=== PATIENT | female | born 1980 | race Caucasian/White ===

== ENCOUNTER 2022-08-25 16:31 | Inpatient (IN) ==
[2022-08-25] MEDS ORDERED: 0.9 % SODIUM CHLORIDE 1,000 ML IV ONE ×2 (18:48→21:23)
[2022-08-25 19:05] LABS: POC Calcium, Ionized 1.1 (1.16-1.32); POC Creatinine 5.4 (0.6-1.2)
[2022-08-25] MEDS ORDERED: POTASSIUM CHLORIDE 40 MEQ in DEXTROSE 5% IN WATER 500 ML IV ONE (19:12)
[2022-08-25 19:22] LABS: Basophils # (Auto) 0.04 K/mcL (0.00-0.30); Basophils % (Auto) 0.4 % (0.0-2.0); Eosinophils # (Auto) 0.09 K/mcL (0.00-0.70); Eosinophils % (Auto) 0.9 % (0.0-7.0); Hematocrit 38.7 % (34.1-44.9); Hemoglobin 13.3 g/dL (11.2-15.7); Lymphocytes # (Auto) 2.62 K/mcL (1.50-4.80); Lymphocytes % (Auto) 25.7 % (15.5-49.0); Mean Corpuscular HGB Conc 34.4 g/dL (31.0-36.0); Mean Platelet Volume 9.1 fL (8.8-12.5); Monocytes # (Auto) 0.62 K/mcL (0.10-0.90); Monocytes % (Auto) 6.1 % (1.0-12.0); Neutrophils % (Auto) 66.7 % (38.0-78.0); Platelet Count 330 K/mcL (140-440); Red Cell Distribution Width 11.9 % (11.5-14.5); WBC 10.2 K/mcL (4.5-11.0)
[2022-08-25] MEDS ORDERED: POTASSIUM CHLORIDE 20 MEQ/10 ML VIAL IV ONE (19:35)
[2022-08-25 19:38] LABS: POC Calcium, Ionized 1.13 (1.16-1.32); POC Creatinine 5.4 (0.6-1.2); POC Potassium 2.9 (3.3-5.1)
[2022-08-25] MEDS ORDERED: POTASSIUM CHLORIDE 20 MEQ TABLET PO ONE (21:04)
[2022-08-25] MEDS ORDERED: FUROSEMIDE 40 MG/4 ML VIAL IV ONE (21:04)
[2022-08-25 21:27] LABS: POC Calcium, Ionized 1.03 (1.16-1.32); POC Creatinine 5.2 (0.6-1.2); POC Potassium 3.2 (3.3-5.1)
--- NOTE | 2022-08-25 21:35 | Emergency Department Note ---
Recheck HPI General Chief Complaint: Recheck/Abnormal Lab/Rx Stated Complaint: dr. liriano fluids low electrolites Time Seen by Provider: 08/25/22 18:48 Source: patient Mode of arrival: ambulatory Limitations: no limitations History of Present Illness HPI Narrative: Narrative: Patient presents to the ED after being sent over from her primary care physician due to abnormal labs. Apparently patient had low potassium and abnormal renal function. Patient stated that she has been having back pain which she describes as chronic. Also been having some belly issues over the last couple weeks. She denies nausea, vomiting, fever, chills, dysuria, hematuria, urinary frequency, abdominal trauma, history of chronic kidney disease, decreased urine output. Patient states she is not sure what her lab values were just that she was supposed to come here for evaluation. She denies any other alleviating or aggravating factors. Related Data Home Medications Medication Instructions Recorded Confirmed fexofenadine 180 mg tablet 180 mg PO QDAY 07/07/22 08/25/22 (Kenia Allergy) fluticasone propionate 50 1 spray intranasal QDAY 07/07/22 08/25/22 mcg/actuation nasal spray,suspension (Flonase Allergy Relief) losartan 50 mg tablet 100 mg PO QDAY 08/03/22 08/25/22 Previous Rx's Medication Instructions Recorded omeprazole 40 mg capsule,delayed 40 mg PO QDAY 30 days #30 caps 08/03/22 release potassium chloride 20 mEq 20 meq PO QDAY #7 tabs 08/05/22 tablet,extended release diltiazem HCl 120 mg 120 mg PO QAM #30 caps 08/10/22 capsule,extended release 24 hr hydrochlorothiazide 25 mg tablet 25 mg PO QAM #30 tabs 08/10/22 ondansetron HCl 8 mg tablet 8 mg PO Q12H PRN nausea and 08/10/22 vomiting #30 tabs methocarbamol 750 mg tablet 750 mg PO TID PRN muscle spasm #30 08/11/22 tabs Allergies Allergy/AdvReac Type Severity Reaction Status Date / Time feathers Allergy Unknown Unknown Verified 08/25/22 16:38 mold Allergy Unknown Unknown Verified 08/25/22 16:38 Penicillins Allergy Unknown Unknown Verified 08/25/22 16:38 Dust mites Allergy Unknown Unknown Uncoded 08/25/22 09:04 Raw shellfish Allergy Unknown Unknown Uncoded 08/25/22 09:04 Review of Systems ROS ROS Narrative: Narrative: All systems ED: reviewed and negative except as stated. 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 Hansen 07/08/2022 she has no longer seeing Dr. Hansen. 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 neg for [id number] hereditary hemochromatosis. Carrier per hematology patient should have yearly ferritin levels drawn and if elevated consult with hematology at that time 07/08/2022 check cbc and ferritin today 08/10/2022 has an appointment with hematology tomorrow, urged her to keep Hypertension Took medication in 2018 07/08/2022 new. Seen at [facility] ER in May and started on hydrochlorothiazide 12.5, blood pressure significantly elevated still, add losartan 50 mg for a week and then increase to 100, labs today, EKG shows normal sinus rhythm no ectopy or ST changes, obtain echo, stress test, follow-up a month 08/03/2022 blood pressure improved on losartan 50 and hydrochlorothiazide 25, obtain stress test, echo 08/10/2022 elevated on losartan 100 and hydrochlorothiazide 25, add diltiazem, discussed use, rationale and side effects. Follow-up on the for wellness Muscle spasm (10/01/14) Took cyclobenzaprine for muscle spasms in 201507/08/2022 new. Trial of methocarbamol Neck pain Seen by Dr. Zuñiga in 201707/08/2022 new. Obtain x-ray, start physical therapy, refer to Ortho 08/03/2022 she has an appoint with Dr. Zuñiga in 6 weeks 08/10/2022 keep appointment with Yogesh Sweating abnormality 2018 due to the number of medications she is taking that can contribute to sweating we will taper off medication rather than a complete workup due to cost, as patient does not have insurance at this time. If sweating persists will proceed with TB test, echo, blood culture, HIV etc. in 2018 sweating was thought to be related to Zoloft or Effexor, she is no longer having this and continues to sweat Tension headache (10/01/14) Took amitriptyline in 201507/08/2022 continues to struggle, start physical therapy Thoracic spine pain (10/01/14) Ureteral calculus left 5 mm stone Surgical History No history of previous surgery Family History Unknown Hemochromatosis Grandmother Benign neoplasm of brain Maternal Malignant neoplasm of colon Maternal Diabetes mellitus Maternal Dementia Brother Diabetes mellitus Calculus of kidney High blood pressure Father Cardiac disease Grandfather Malignant neoplasm of prostate Paternal Mother Dementia Social History Smoking Status: Former smoker Alcohol Intake Frequency: does not drink Substance Use: does not use Exam Narrative Narrative: Narrative: General Limitations: no limitations General appearance: Absent in distress ENT ENT: Present normal oropharynx and mucous membranes moist Respiratory Respiratory: Present normal lung sounds bilaterally and respiratory distress Cardiovascular Cardiovascular: Present regular rate and normal rhythm Adbominal Abdominal: Present soft; Absent tenderness Extremities Extremities: Present normal capillary refill Back Back: Absent CVA tenderness (R) or CVA tenderness (L) Neurological Neurological: Present oriented X3 and normal gait Psychiatric Psychiatric: Present normal affect and normal mood Skin Skin: Present warm (WNL) and intact Course Course Course Narrative: Patient was evaluated for abnormal lab findings. Labs were obtained here and showed that patient had acute kidney injury with elevated BUN and creatinine with a creatinine greater than 5. He was also found to be hypokalemic with a potassium of 2.9. UA was unremarkable. Patient was bolused IV fluids and given IV Lasix. Patient with nausea/was also given some IV Zofran. Patient began to have good urine output. Renal ultrasound was obtained and was unremarkable. Case was discussed with farm implement mechanic who stated patient did not need emergent dialysis but should be admitted to the hospital for fluid hydration. Unfortunate we do not have any beds at our facility so we attempted to transfer patient out to another facility. At this time we have not found an accepting facility. We will continue with IV fluids. Case will be signed out to Dr. Cervantes to determine final disposition once an accepting facility has been found. Plan of care was discussed with patient she expressed verbal understanding and agreement with Reevaluation(s) Reevaluation #1: Patient remains hemodynamic stable. No new complaints at this time. Time: 20:08 Consultations Consultation #1: Discussed with on-call farm implement mechanic, Dr. Solomon, who states that patient does not meet emergent dialysis requirement at this time. Recommend continued fluids and admission to hospital. Time: 22:13 Vital Signs Vital signs: Vital Signs Temperature 98.2 F 08/25/22 16:34 Pulse Rate 79 08/25/22 16:34 Respiratory Rate 18 08/25/22 16:34 Blood Pressure 149/83 08/25/22 16:34 Pulse Oximetry (%) 98 08/25/22 16:34 Oxygen Delivery Method 08/25/22 16:34 Temperature 98.2 F 08/25/22 16:34 Pulse Rate 56 L 08/26/22 05:42 Respiratory Rate 16 08/26/22 06:17 Blood Pressure 137/85 08/26/22 06:17 Pulse Oximetry (%) 100 08/26/22 05:42 Oxygen Delivery Method 08/26/22 05:42 MDM MDM Narrative Medical decision making narrative: Narrative: Differential Diagnosis Differential Diagnosis: Acute renal failure Medical Records Medical records reviewed: Yes I reviewed the patient's medical records. Lab Data Lab results reviewed: Yes I reviewed the patient's lab results. Result diagrams: 08/25/22 18:56 08/26/22 04:24 Labs: Lab Results 08/25/22 08/25/22 08/25/22 Range/Units 18:56 19:00 19:32 WBC 10.2 (4.5-11.0) K/mcL RBC 4.40 (3.59-5.38) M/mcL Hgb 13.3 (11.2-15.7) g/dL Hct 38.7 (34.1-44.9) % POC Hct 41.0 44.0 (36-48) MCV 88.0 (80.0-100.0) fL MCH 30.2 (26.0-34.0) pg MCHC 34.4 (31.0-36.0) g/dL RDW 11.9 (11.5-14.5) % Plt Count 330 (140-440) K/mcL MPV 9.1 (8.8-12.5) fL Immature Gran % (Auto) 0.2 (0.0-0.5) % Neut % (Auto) 66.7 (38.0-78.0) % Lymph % (Auto) 25.7 (15.5-49.0) % [place] % (Auto) 6.1 (1.0-12.0) % Eos % (Auto) 0.9 (0.0-7.0) % Baso % (Auto) 0.4 (0.0-2.0) % Lymph # (Auto) 2.62 (1.50-4.80) K/mcL [place] # (Auto) 0.62 (0.10-0.90) K/mcL Eos # (Auto) 0.09 (0.00-0.70) K/mcL Baso # (Auto) 0.04 (0.00-0.30) K/mcL Immature Gran # 0.02 (0.00-0.05) K/mcl Absolute Neutrophils 6.82 (1.80-8.00) K/mcL POC Sodium 138 138 (133-145) Sodium (133-145) mmol/L POC Potassium 3.0 L 2.9 L* (3.3-5.1) Potassium (3.3-5.1) mmol/L POC Chloride 99 98 (96-108) Chloride (96-108) mmol/L Carbon Dioxide (22-30) mmol/L POC Total CO2 29.0 29.0 (22-30) Anion Gap (8.0-16.0) POC BUN 37 H 38 H (6-20) BUN (6-20) mg/dL Creatinine (0.6-1.1) mg/dL POC Creatinine 5.4 H* 5.4 H* (0.6-1.2) GFR Calculation Glucose (70-105) mg/dL POC Glucose 103 102 (70-105) Calcium (8.6-10.4) mg/dL POC WB Ioniz Calcium 1.10 L 1.13 L (1.16-1.32) Magnesium (1.6-2.5) mg/dL Total Bilirubin (0.1-1.0) mg/dL AST (<32) U/L ALT (<40) U/L Alkaline Phosphatase (39-117) U/L Total Protein (5.9-8.4) gm/dL Albumin (3.2-5.2) gm/dL Globulin (2.2-3.7) gm/dL Albumin/Globulin Ratio (1.0-2.3) 08/25/22 08/25/22 08/26/22 Range/Units 21:21 21:24 04:24 WBC (4.5-11.0) K/mcL RBC (3.59-5.38) M/mcL Hgb (11.2-15.7) g/dL Hct (34.1-44.9) % POC Hct 37.0 (36-48) MCV (80.0-100.0) fL MCH (26.0-34.0) pg MCHC (31.0-36.0) g/dL RDW (11.5-14.5) % Plt Count (140-440) K/mcL MPV (8.8-12.5) fL Immature Gran % (Auto) (0.0-0.5) % Neut % (Auto) (38.0-78.0) % Lymph % (Auto) (15.5-49.0) % [place] % (Auto) (1.0-12.0) % Eos % (Auto) (0.0-7.0) % Baso % (Auto) (0.0-2.0) % Lymph # (Auto) (1.50-4.80) K/mcL [place] # (Auto) (0.10-0.90) K/mcL Eos # (Auto) (0.00-0.70) K/mcL Baso # (Auto) (0.00-0.30) K/mcL Immature Gran # (0.00-0.05) K/mcl Absolute Neutrophils (1.80-8.00) K/mcL POC Sodium 138 (133-145) Sodium 134 (133-145) mmol/L POC Potassium 3.2 L (3.3-5.1) Potassium 3.5 (3.3-5.1) mmol/L POC Chloride 101 (96-108) Chloride 99 (96-108) mmol/L Carbon Dioxide 24 (22-30) mmol/L POC Total CO2 27.0 (22-30) Anion Gap 11.0 (8.0-16.0) POC BUN 35 H (6-20) BUN 28 H (6-20) mg/dL Creatinine 4.1 H (0.6-1.1) mg/dL POC Creatinine 5.2 H* (0.6-1.2) GFR Calculation 13 Glucose 125 H (70-105) mg/dL POC Glucose 119 H (70-105) Calcium 8.5 L (8.6-10.4) mg/dL POC WB Ioniz Calcium 1.03 L (1.16-1.32) Magnesium 2.8 H (1.6-2.5) mg/dL Total Bilirubin 0.4 (0.1-1.0) mg/dL AST 17 (<32) U/L ALT 38 (<40) U/L Alkaline Phosphatase 86 (39-117) U/L Total Protein 7.0 (5.9-8.4) gm/dL Albumin 3.9 (3.2-5.2) gm/dL Globulin 3.1 (2.2-3.7) gm/dL Albumin/Globulin Ratio 1.3 (1.0-2.3) ED POC Tests ED POC Tests: DEMOND - SARS Antigen Negative HCG POC Results Negative Radiology Data Radiology results reviewed: Yes I reviewed the patient's radiology results. Radiology results narrative: Renal ultrasound obtained, unremarkable EKG Data EKG #1: EKG attestation: Yes I reviewed and interpreted this EKG. EKG shows normal: sinus rhythm Rate: normal Rhythm: NSR [place]/QRS: normal Heart block present: None ST segment elevation in: None ST segment depression in: None QTc: normal QRS morphology: Present normal Interpretation: no acute changes Core Measures AMI Core Measures Followed: Yes Discharge Plan Patient/Caregiver Discharge Instructions Pt seen by INTERLOCKING AND SIGNAL MECHANIC/PA only: No Clinical Impression: Acute hypokalemia Acute renal failure Qualifiers: Acute renal failure type: unspecified Qualified Code(s): N17.9 - Acute kidney failure, unspecified Patient Disposition: Still a Patient Condition: Fair Follow up with: Yamileth Tavares ARNP [Primary Care Provider] - Prescriptions: No Action potassium chloride 20 mEq tablet extended release 20 meq PO QDAY Qty: 7 0RF methocarbamol 750 mg tablet 750 mg PO TID PRN (Reason: muscle spasm) Qty: 30 1RF fluticasone propionate [Flonase Allergy Relief] 50 mcg/actuation spray,suspension 1 spray intranasal QDAY Rx Instructions: administer into each nostril fexofenadine [Kenia Allergy] 180 mg tablet 180 mg PO QDAY losartan 50 mg tablet 100 mg PO QDAY omeprazole 40 mg capsule,delayed release(DR/EC) 40 mg PO QDAY 30 Days Qty: 30 2RF hydrochlorothiazide 25 mg tablet 25 mg PO QAM Qty: 30 3RF diltiazem HCl 120 mg capsule,extended release 24hr 120 mg PO QAM Qty: 30 1RF ondansetron HCl 8 mg tablet 8 mg PO Q12H PRN (Reason: nausea and vomiting) Qty: 30 1RF
[2022-08-25] MEDS ORDERED: ONDANSETRON 4 MG/2 ML VIAL IV ONE (23:49)
[2022-08-26] MEDS: 0.9 % SODIUM CHLORIDE 1,000 ML IV SCH ×5 (01:19→18:06)
[2022-08-26 05:44] LABS: ALT/SGPT 38 U/L (<40); AST/SGOT 17 U/L (<32); Albumin 3.9 gm/dL (3.2-5.2); Albumin/Globulin Ratio 1.3 (1.0-2.3); Alkaline Phosphatase 86 U/L (39-117); Bilirubin,Total 0.4 mg/dL (0.1-1.0); Blood Urea Nitrogen 28 mg/dL (6-20); Calcium 8.5 mg/dL (8.6-10.4); Carbon Dioxide 24 mmol/L (22-30); Chloride 99 mmol/L (96-108); Globulin 3.1 gm/dL (2.2-3.7); Glomerular Filtration Rate 13; Glucose 125 mg/dL (70-105)
--- NOTE | 2022-08-26 07:51 | Emergency Department Note ---
Course Course Course Narrative: Received patient in transfer of care from Dr. Driver at 0700 hrs. Still awaiting bed situation either a bed to open up at this hospital or potentially find a bed at another hospital so the patient can be admitted for continued fluids and correction of her acute renal insufficiency/failure. I reviewed patient's chart, care to this point in time. 0850: Spoke with [facility]. They took information regarding patient's condition, history, current lab values, current vital signs. We will see if they can get her on the list to get her into one of their acute care beds. They will call back if they have bed available. 1100: Order repeat CMP to evaluate kidney status. 1120: Received callback from [facility], their medical sociologist has declined acceptance patient in transfer. They recommend we contact the [facility] transfer center at [facility] for assistance in finding a bed for placement for this patient. 1300: ED charge nurse tells me that the bottle house cleaners supervisor has spoken to Dr. Leyva, hospitalist, hopefully will hear back from the hospitalist with [employer] supervisor of the bed will be available for this person for admission rather than have to transfer her elsewhere. 1510: Advised by RN caring for patient that she is having some nausea. Verbal order given for Zofran 4 mg IV. Reevaluation(s) Reevaluation #1: Reevaluated. Stable. Advised patient of continued search for a bed. Her labs are improving and her kidney function is slowly improving as well. I encouraged her to continue to drink as much clear liquid as possible. She has a water bottle next to her on the bedside table. All questions answered. Time: 12:55 Consultations Consultation #1: Spoke with Dr. Leyva, hospitalist. He accepts patient for admission to the hospital. Time: 16:04 Vital Signs Vital signs: Vital Signs Temperature 98.2 F 08/25/22 16:34 Pulse Rate 79 08/25/22 16:34 Respiratory Rate 18 08/25/22 16:34 Blood Pressure 149/83 08/25/22 16:34 Pulse Oximetry (%) 98 08/25/22 16:34 Oxygen Delivery Method 08/25/22 16:34 Temperature 98.2 F 08/25/22 16:34 Pulse Rate 59 L 08/26/22 16:02 Respiratory Rate 17 08/26/22 16:02 Blood Pressure 158/99 08/26/22 16:02 Pulse Oximetry (%) 100 08/26/22 16:02 Oxygen Delivery Method 08/26/22 05:42 MDM MDM Narrative Medical decision making narrative: Narrative: Patient presents emerged part last night and care was started initially by Dr. Driver. She was found to be in acute renal failure with the elevated creatinine and decreased GFR. Dr. Driver did speak with the feeder tender Dr. Palacios who did not feel the patient needed dialysis. He recommended hospitalization with IV fluids. Patient has gradually improved with her GFR going from 11-14 and a creatinine dropping from 5.1 down to 3.7. I spoke with Dr. Leyva, hospitalist who agrees to except the patient for admission to the hospital. Sepsis Sepsis Identified: No Differential Diagnosis Differential Diagnosis: Acute kidney injury, renal failure, dehydration. Medical Records Medical records reviewed: Yes I reviewed the patient's medical records. Lab Data Lab results reviewed: Yes I reviewed the patient's lab results. Result diagrams: 08/25/22 18:56 08/26/22 11:15 Labs: Lab Results 08/25/22 08/25/22 08/25/22 Range/Units 18:56 19:00 19:32 WBC 10.2 (4.5-11.0) K/mcL RBC 4.40 (3.59-5.38) M/mcL Hgb 13.3 (11.2-15.7) g/dL Hct 38.7 (34.1-44.9) % POC Hct 41.0 44.0 (36-48) MCV 88.0 (80.0-100.0) fL MCH 30.2 (26.0-34.0) pg MCHC 34.4 (31.0-36.0) g/dL RDW 11.9 (11.5-14.5) % Plt Count 330 (140-440) K/mcL MPV 9.1 (8.8-12.5) fL Immature Gran % (Auto) 0.2 (0.0-0.5) % Neut % (Auto) 66.7 (38.0-78.0) % Lymph % (Auto) 25.7 (15.5-49.0) % [place] % (Auto) 6.1 (1.0-12.0) % Eos % (Auto) 0.9 (0.0-7.0) % Baso % (Auto) 0.4 (0.0-2.0) % Lymph # (Auto) 2.62 (1.50-4.80) K/mcL [place] # (Auto) 0.62 (0.10-0.90) K/mcL Eos # (Auto) 0.09 (0.00-0.70) K/mcL Baso # (Auto) 0.04 (0.00-0.30) K/mcL Immature Gran # 0.02 (0.00-0.05) K/mcl Absolute Neutrophils 6.82 (1.80-8.00) K/mcL POC Sodium 138 138 (133-145) Sodium (133-145) mmol/L POC Potassium 3.0 L 2.9 L* (3.3-5.1) Potassium (3.3-5.1) mmol/L POC Chloride 99 98 (96-108) Chloride (96-108) mmol/L Carbon Dioxide (22-30) mmol/L POC Total CO2 29.0 29.0 (22-30) Anion Gap (8.0-16.0) POC BUN 37 H 38 H (6-20) BUN (6-20) mg/dL Creatinine (0.6-1.1) mg/dL POC Creatinine 5.4 H* 5.4 H* (0.6-1.2) GFR Calculation Glucose (70-105) mg/dL POC Glucose 103 102 (70-105) Calcium (8.6-10.4) mg/dL POC WB Ioniz Calcium 1.10 L 1.13 L (1.16-1.32) Magnesium (1.6-2.5) mg/dL Total Bilirubin (0.1-1.0) mg/dL AST (<32) U/L ALT (<40) U/L Alkaline Phosphatase (39-117) U/L Total Protein (5.9-8.4) gm/dL Albumin (3.2-5.2) gm/dL Globulin (2.2-3.7) gm/dL Albumin/Globulin Ratio (1.0-2.3) 08/25/22 08/25/22 08/26/22 Range/Units 21:21 21:24 04:24 WBC (4.5-11.0) K/mcL RBC (3.59-5.38) M/mcL Hgb (11.2-15.7) g/dL Hct (34.1-44.9) % POC Hct 37.0 (36-48) MCV (80.0-100.0) fL MCH (26.0-34.0) pg MCHC (31.0-36.0) g/dL RDW (11.5-14.5) % Plt Count (140-440) K/mcL MPV (8.8-12.5) fL Immature Gran % (Auto) (0.0-0.5) % Neut % (Auto) (38.0-78.0) % Lymph % (Auto) (15.5-49.0) % [place] % (Auto) (1.0-12.0) % Eos % (Auto) (0.0-7.0) % Baso % (Auto) (0.0-2.0) % Lymph # (Auto) (1.50-4.80) K/mcL [place] # (Auto) (0.10-0.90) K/mcL Eos # (Auto) (0.00-0.70) K/mcL Baso # (Auto) (0.00-0.30) K/mcL Immature Gran # (0.00-0.05) K/mcl Absolute Neutrophils (1.80-8.00) K/mcL POC Sodium 138 (133-145) Sodium 134 (133-145) mmol/L POC Potassium 3.2 L (3.3-5.1) Potassium 3.5 (3.3-5.1) mmol/L POC Chloride 101 (96-108) Chloride 99 (96-108) mmol/L Carbon Dioxide 24 (22-30) mmol/L POC Total CO2 27.0 (22-30) Anion Gap 11.0 (8.0-16.0) POC BUN 35 H (6-20) BUN 28 H (6-20) mg/dL Creatinine 4.1 H (0.6-1.1) mg/dL POC Creatinine 5.2 H* (0.6-1.2) GFR Calculation 13 Glucose 125 H (70-105) mg/dL POC Glucose 119 H (70-105) Calcium 8.5 L (8.6-10.4) mg/dL POC WB Ioniz Calcium 1.03 L (1.16-1.32) Magnesium 2.8 H (1.6-2.5) mg/dL Total Bilirubin 0.4 (0.1-1.0) mg/dL AST 17 (<32) U/L ALT 38 (<40) U/L Alkaline Phosphatase 86 (39-117) U/L Total Protein 7.0 (5.9-8.4) gm/dL Albumin 3.9 (3.2-5.2) gm/dL Globulin 3.1 (2.2-3.7) gm/dL Albumin/Globulin Ratio 1.3 (1.0-2.3) 08/26/22 Range/Units 11:15 WBC (4.5-11.0) K/mcL RBC (3.59-5.38) M/mcL Hgb (11.2-15.7) g/dL Hct (34.1-44.9) % POC Hct (36-48) MCV (80.0-100.0) fL MCH (26.0-34.0) pg MCHC (31.0-36.0) g/dL RDW (11.5-14.5) % Plt Count (140-440) K/mcL MPV (8.8-12.5) fL Immature Gran % (Auto) (0.0-0.5) % Neut % (Auto) (38.0-78.0) % Lymph % (Auto) (15.5-49.0) % [place] % (Auto) (1.0-12.0) % Eos % (Auto) (0.0-7.0) % Baso % (Auto) (0.0-2.0) % Lymph # (Auto) (1.50-4.80) K/mcL [place] # (Auto) (0.10-0.90) K/mcL Eos # (Auto) (0.00-0.70) K/mcL Baso # (Auto) (0.00-0.30) K/mcL Immature Gran # (0.00-0.05) K/mcl Absolute Neutrophils (1.80-8.00) K/mcL POC Sodium (133-145) Sodium 139 (133-145) mmol/L POC Potassium (3.3-5.1) Potassium 3.4 (3.3-5.1) mmol/L POC Chloride (96-108) Chloride 103 (96-108) mmol/L Carbon Dioxide 24 (22-30) mmol/L POC Total CO2 (22-30) Anion Gap 12.0 (8.0-16.0) POC BUN (6-20) BUN 25 H (6-20) mg/dL Creatinine 3.7 H (0.6-1.1) mg/dL POC Creatinine (0.6-1.2) GFR Calculation 14 Glucose 123 H (70-105) mg/dL POC Glucose (70-105) Calcium 8.7 (8.6-10.4) mg/dL POC WB Ioniz Calcium (1.16-1.32) Magnesium (1.6-2.5) mg/dL Total Bilirubin 0.4 (0.1-1.0) mg/dL AST 18 (<32) U/L ALT 36 (<40) U/L Alkaline Phosphatase 84 (39-117) U/L Total Protein 6.9 (5.9-8.4) gm/dL Albumin 3.9 (3.2-5.2) gm/dL Globulin 3.0 (2.2-3.7) gm/dL Albumin/Globulin Ratio 1.3 (1.0-2.3) ED POC Tests ED POC Tests: DEMOND - SARS Antigen Negative HCG POC Results Negative Discharge Plan Patient/Caregiver Discharge Instructions Pt seen by OPERATIONS MANAGER ASSISTANT/PA only: No Clinical Impression: Acute renal failure, Acute hypokalemia Patient Disposition: Xfer As Inpt ([facility]) Condition: Fair Follow up with: Yamileth Tavares ARNP [Primary Care Provider] - Prescriptions: No Action potassium chloride 20 mEq tablet extended release 20 meq PO QDAY Qty: 7 0RF methocarbamol 750 mg tablet 750 mg PO TID PRN (Reason: muscle spasm) Qty: 30 1RF fluticasone propionate [Flonase Allergy Relief] 50 mcg/actuation spray,suspension 1 spray intranasal QDAY Rx Instructions: administer into each nostril fexofenadine [Kenia Allergy] 180 mg tablet 180 mg PO QDAY losartan 50 mg tablet 100 mg PO QDAY omeprazole 40 mg capsule,delayed release(DR/EC) 40 mg PO QDAY 30 Days Qty: 30 2RF hydrochlorothiazide 25 mg tablet 25 mg PO QAM Qty: 30 3RF diltiazem HCl 120 mg capsule,extended release 24hr 120 mg PO QAM Qty: 30 1RF ondansetron HCl 8 mg tablet 8 mg PO Q12H PRN (Reason: nausea and vomiting) Qty: 30 1RF
--- NOTE | 2022-08-26 09:01 | Ultrasound Report ---
History: Acute renal failure findings: The right kidney measures 5.4 x 6.5 x 11.8 cm and the left measures 6.4 x 7.0 x 11.7 cm. No mass, cyst, calculus or hydronephrosis are present. The cortex is normal in thickness and echogenicity bilaterally. The patient had emptied the bladder immediately prior to the ultrasound. The bladder contained only 56 cc of urine. It is difficult to visualize flow of urine through the ureters into the bladder when it is not adequately distended. IMPRESSION: Anatomically normal kidneys Interpreted and Authenticated by: Con Armenta 08/26/22
[2022-08-26] MEDS ORDERED: FEXOFENADINE 180 MG TABLET PO ONE (10:12)
[2022-08-26] MEDS ORDERED: LOSARTAN 50 MG TABLET PO SCH (10:21)
[2022-08-26] MEDS ORDERED: HYDROCHLOROTHIAZIDE 25 MG TABLET PO SCH (10:21)
[2022-08-26] MEDS ORDERED: OMEPRAZOLE 20 MG CAPSULE PO SCH (10:21)
[2022-08-26] MEDS: DILTIAZEM 120 MG CAP.XL.24H PO SCH (11:06)
[2022-08-26 12:41] LABS: ALT/SGPT 36 U/L (<40); AST/SGOT 18 U/L (<32); Albumin 3.9 gm/dL (3.2-5.2); Albumin/Globulin Ratio 1.3 (1.0-2.3); Alkaline Phosphatase 84 U/L (39-117); Bilirubin,Total 0.4 mg/dL (0.1-1.0); Blood Urea Nitrogen 25 mg/dL (6-20); Calcium 8.7 mg/dL (8.6-10.4); Carbon Dioxide 24 mmol/L (22-30); Chloride 103 mmol/L (96-108); Glomerular Filtration Rate 14; Glucose 123 mg/dL (70-105)
[2022-08-26] MEDS ORDERED: ONDANSETRON 4 MG/2 ML VIAL IV ONE (15:14)
--- NOTE | 2022-08-26 16:31 | Internal Med History&Physical ---
HPI History of Present Illness Patient information: Note initiated : 08/26/22 at 4:29 pm Service Date, if different from initiated Date: [] Patient: Cristina Ruby 41 y/o F admitted on for dr. heri denney. Chief Complaint: [] History of present illness: Ms. Ruby is a 41 year old Female with a history of hypertension, hemochromatosis, GERD who was asked to go to the emergency department for acute kidney injury found on laboratory work-up by the patient's primary care provider. In the ED, the patient had a urinalysis which was bland and a bilateral renal ultrasound which did not showed any evidence of hydronephrosis and anatomically normal kidneys. She was given IV fluids and followed for about 24 hours as there was no bed capacity in the hospital when she presented to the ED. Her renal function did improve significantly with IV fluid and the patient has been making urine. In the ED, the patient's blood pressure has been elevated. The patient's CBC with differential was normal. The patient presented with hypokalemia which was corrected in the ED. The patient says that in May she had a illness which primarily manifested as abdominal discomfort and also back discomfort. She says that she had been severely constipated but that resolved. The patient did have a CT abdomen and pelvis with contrast on 08/08/2022 which showed mild thickened appearance of the colon involving the cecum, ascending and proximal transverse colon. The patient says she does have a family history of kidney disease in her brother who has anatomically abnormal kidneys. She says she has a first-degree relative who has leukemia. The patient denies recent high-dose NSAID use. Review of systems Constitutional: no fever, fatigue, or weight loss Eyes: no vision changes or pain Cardiovascular: no chest pain, no palpitations Respiratory: no cough or dyspnea Gastrointestinal: Improved epigastric abdominal pain, resolved diarrhea Genitourinary: no dysuria or difficulty voiding Musculoskeletal: Positive for back pain Integumentary: no skin lesion or wound Neurological: no focal weakness or numbness Psychiatric: no anxiety or depression Physical exam Head: Atraumatic, normal inspection. Eyes: normal appearance, no scleral icterus. Neck: full ROM Respiratory: no respiratory distress. Cardiovascular: normal rate and rhythm, S1, S2. GI/Abdominal: Obesely distended, soft, nontender, no guarding. Extremities: full range of motion, mild tenderness over mid back muscles on both sides of thoracic spine Neurological: CN II-XII intact, intact motor, intact sensation. Psychiatric: normal mood. 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 Hansen 07/08/2022 she has no longer seeing Dr. Hansen. She has been off medication for some time, obtain PFTs, continue albuterol 08/03/2022 obtain PFTs Contact dermatitis Ongoing since 2015 Depression with anxiety Has tried Zoloft, Effexor, developed sweating with both and was tapered off 07/08/2022 she continues to sweat without medication, refer to behavioral health 08/03/2022 she continues to struggle with her mental health, keep scheduled behavioral health appointment 08/10/2022 she had an appointment 2 days ago but could not go due to nausea, ondansetron given, stressed the importance of scheduling an appointment Hemochromatosis associated with mutation in HFE gene positive for one copy of H63D mutation in HFE gene. neg for c282Y hereditary hemochromatosis. Carrier per hematology patient should have yearly ferritin levels drawn and if elevated consult with hematology at that time 07/08/2022 check cbc and ferritin today 08/10/2022 has an appointment with hematology tomorrow, urged her to keep Hypertension Took medication in 2018 07/08/2022 new. Seen at [facility] ER in May and started on hydrochlorothiazide 12.5, blood pressure significantly elevated still, add losartan 50 mg for a week and then increase to 100, labs today, EKG shows normal sinus rhythm no ectopy or ST changes, obtain echo, stress test, follow-up a month 08/03/2022 blood pressure improved on losartan 50 and hydrochlorothiazide 25, obtain stress test, echo 08/10/2022 elevated on losartan 100 and hydrochlorothiazide 25, add diltiazem, discussed use, rationale and side effects. Follow-up on the for wellness Muscle spasm (10/01/14) Took cyclobenzaprine for muscle spasms in 201507/08/2022 new. Trial of methocarbamol Neck pain Seen by Dr. Zuñiga in 201707/08/2022 new. Obtain x-ray, start physical therapy, refer to Ortho 08/03/2022 she has an appoint with Dr. Zuñiga in 6 weeks 08/10/2022 keep appointment with Yogesh Sweating abnormality 2018 due to the number of medications she is taking that can contribute to s weating we will taper off medication rather than a complete workup due to cost, as patient does not have insurance at this time. If sweating persists will proceed with TB test, echo, blood culture, HIV etc. in 2018 sweating was thought to be related to Zoloft or Effexor, she is no longer having this and continues to sweat Tension headache (10/01/14) Took amitriptyline in 201507/08/2022 continues to struggle, start physical therapy Thoracic spine pain (10/01/14) Ureteral calculus left 5 mm stone Surgical History No history of previous surgery Family History Unknown Hemochromatosis Grandmother Benign neoplasm of brain Maternal Malignant neoplasm of colon Maternal Diabetes mellitus Maternal Dementia Brother Diabetes mellitus Calculus of kidney High blood pressure Father Cardiac disease Grandfather Malignant neoplasm of prostate Paternal Mother Dementia Social History adopted: No caregiver/support person: No foster care: No household members: family housing: house lives independently: Yes marital status: single education level: college service: No chcf: No 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 Living with mother MEDS/ALLERGIES Home Medications and Allergies Home Medications Medication Instructions Recorded Confirmed Type fexofenadine 180 mg tablet 180 mg PO QDAY 07/07/22 08/25/22 History (Kenia Allergy) fluticasone propionate 50 1 spray intranasal QDAY 07/07/22 08/25/22 History mcg/actuation nasal spray,suspension (Flonase Allergy Relief) losartan 50 mg tablet 100 mg PO QDAY 08/03/22 08/25/22 History omeprazole 40 mg capsule,delayed 40 mg PO QDAY 30 days #30 caps 08/03/22 08/25/22 Rx release potassium chloride 20 mEq 20 meq PO QDAY #7 tabs 08/05/22 08/25/22 Rx tablet,extended release diltiazem HCl 120 mg 120 mg PO QAM #30 caps 08/10/22 08/25/22 Rx capsule,extended release 24 hr hydrochlorothiazide 25 mg tablet 25 mg PO QAM #30 tabs 08/10/22 08/25/22 Rx ondansetron HCl 8 mg tablet 8 mg PO Q12H PRN nausea and 08/10/22 08/25/22 Rx vomiting #30 tabs methocarbamol 750 mg tablet 750 mg PO TID PRN muscle spasm #30 08/11/22 08/25/22 Rx tabs Allergies Allergy/AdvReac Type Severity Reaction Status Date / Time feathers Allergy Unknown Unknown Verified 08/25/22 16:38 mold Allergy Unknown Unknown Verified 08/25/22 16:38 Penicillins Allergy Unknown Unknown Verified 08/25/22 16:38 Dust mites Allergy Unknown Unknown Uncoded 08/25/22 09:04 Raw shellfish Allergy Unknown Unknown Uncoded 08/25/22 09:04 EXAM Constitutional Vitals: Temp Pulse Resp BP Pulse Ox O2 Del Method 98.2 F 59 L 17 158/99 100 08/25/22 16:34 08/26/22 16:02 08/26/22 16:02 08/26/22 16:02 08/26/22 16:02 08/26/22 05:42 DATA Data Completed and Pending Labs: Labs from last 24 hours 08/26/22 08/26/22 08/25/22 11:15 04:24 21:24 WBC RBC Hgb Hct POC Hct 37.0 MCV MCH MCHC RDW Plt Count MPV Immature Gran % (Auto) Neut % (Auto) Lymph % (Auto) Gem % (Auto) Eos % (Auto) Baso % (Auto) Lymph # (Auto) Gem # (Auto) Eos # (Auto) Baso # (Auto) Immature Gran # Absolute Neutrophils POC Sodium 138 Sodium 139 134 POC Potassium 3.2 L Potassium 3.4 3.5 POC Chloride 101 Chloride 103 99 Carbon Dioxide 24 24 POC Total CO2 27.0 Anion Gap 12.0 11.0 POC BUN 35 H BUN 25 H 28 H Creatinine 3.7 H 4.1 H POC Creatinine 5.2 H* GFR Calculation 14 13 Glucose 123 H 125 H POC Glucose 119 H Calcium 8.7 8.5 L POC WB Ioniz Calcium 1.03 L Magnesium Total Bilirubin 0.4 0.4 AST 18 17 ALT 36 38 Alkaline Phosphatase 84 86 Total Protein 6.9 7.0 Albumin 3.9 3.9 Globulin 3.0 3.1 Albumin/Globulin Ratio 1.3 1.3 08/25/22 08/25/22 08/25/22 21:21 19:32 19:00 WBC RBC Hgb Hct POC Hct 44.0 41.0 MCV MCH MCHC RDW Plt Count MPV Immature Gran % (Auto) Neut % (Auto) Lymph % (Auto) Gem % (Auto) Eos % (Auto) Baso % (Auto) Lymph # (Auto) Gem # (Auto) Eos # (Auto) Baso # (Auto) Immature Gran # Absolute Neutrophils POC Sodium 138 138 Sodium POC Potassium 2.9 L* 3.0 L Potassium POC Chloride 98 99 Chloride Carbon Dioxide POC Total CO2 29.0 29.0 Anion Gap POC BUN 38 H 37 H BUN Creatinine POC Creatinine 5.4 H* 5.4 H* GFR Calculation Glucose POC Glucose 102 103 Calcium POC WB Ioniz Calcium 1.13 L 1.10 L Magnesium 2.8 H Total Bilirubin AST ALT Alkaline Phosphatase Total Protein Albumin Globulin Albumin/Globulin Ratio 08/25/22 18:56 WBC 10.2 RBC 4.40 Hgb 13.3 Hct 38.7 POC Hct MCV 88.0 MCH 30.2 MCHC 34.4 RDW 11.9 Plt Count 330 MPV 9.1 Immature Gran % (Auto) 0.2 Neut % (Auto) 66.7 Lymph % (Auto) 25.7 Gem % (Auto) 6.1 Eos % (Auto) 0.9 Baso % (Auto) 0.4 Lymph # (Auto) 2.62 Gem # (Auto) 0.62 Eos # (Auto) 0.09 Baso # (Auto) 0.04 Immature Gran # 0.02 Absolute Neutrophils 6.82 POC Sodium Sodium POC Potassium Potassium POC Chloride Chloride Carbon Dioxide POC Total CO2 Anion Gap POC BUN BUN Creatinine POC Creatinine GFR Calculation Glucose POC Glucose Calcium POC WB Ioniz Calcium Magnesium Total Bilirubin AST ALT Alkaline Phosphatase Total Protein Albumin Globulin Albumin/Globulin Ratio A/P Narrative A/P Narrative: Assessment: 41-year-old female with a history of hypertension, hemochromatosis, GERD admitted for acute kidney injury of uncertain etiology however likely an intrinsic form of RADHA. Unlikely to be prerenal RADHA and no evidence of obstructive nephropathy. HIV screen negative. #Acute kidney injury likely ATN versus other form of intrinsic RADHA #Hypertension #GERD #Obesity BMI 42 Plan -IV fluid, monitor renal function and urine output. -Monitor volume status closely. -Check creatinine kinase level. -Check C3 and C4 level. -Consider ANCA screen. -Holding home HCTZ and losartan for now. -Continue home diltiazem. -Nephrology consult. -Regular diet. -DVT prophylaxis: Heparin SQ -CODE STATUS: Director Of Field Coordination Spent With Patient Time: Total time spent is greater than 50% in coordination of care (as documented) at patient's floor/unit and/or counseling patient:
[2022-08-26 16:48] LABS: Creatine Kinase 91 U/L (24-170)
--- NOTE | 2022-08-26 17:14 | Nephrology Consult Note ---
HPI Date of Consult Consult Date: 08/26/22 Requesting physician: Michael Leyva Primary Care Provider: RUDOLPH Andrea Consult Narrative Chief complaint: Abnormal labs Reason for consult: Acute kidney injury History of present illness: Cristina Ruby is a 41-year-old female with a history of hypertension, hemochromatosis, GERD, being admitted on 07/3022 for acute kidney injury. She was sent to ED for abnormal laboratory work-up by the patient's primary care provider. In ED, the patient was given IV fluids and followed for about 24 hours as there was no bed capacity in the hospital. Her renal function improved and she had good urine output. She has reported abdominal and back discomfort with constipation since May. CT abdomen and pelvis with contrast on 08/08/2022 showed mild thickened appearance of the colon involving the cecum, ascending and proximal transverse colon. cc:: CC: Michael Leyva MD Constitutional Constitutional: Absent fatigue or weakness EENT Nose, mouth and throat: Absent nasal congestion or sore throat Cardiovascular Cardiovascular: Absent chest pain or palpatations Respiratory Respiratory: Absent cough or wheezing Gastrointestinal Gastrointestinal: Absent abdominal pain, constipation, diarrhea, nausea or vomiting Genitourinary Genitourinary: Absent difficulty urinating, dysuria or hematuria Musculoskeletal Musculoskeletal: Absent joint swelling Integumentary Integumentary: Absent rash or wounds Neurological Neurological: Absent confusion or weakness Psychiatric Psychiatric: Absent anxiety or panic attacks Hematologic/Lymphatic Hematologic/Lymphatic: Absent easy bleeding or easy bruising Allergic/Immunologic Allergic/Immunologic: Absent throat swelling or uticaria PFSH PFSH All Active Problems (Updated 08/26/22 @ 06:30 by Kevin Driver DO) Allergic rhinitis (Chronic 10/01/14) Muscle spasm (Chronic 10/01/14) Tension headache (Chronic 10/01/14) Contact dermatitis (Chronic) Depression with anxiety (Chronic) Asthma (Chronic) Neck pain (Chronic) 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 Hansen 07/08/2022 she has no longer seeing Dr. Hansen. She has been off medication for some time, obtain PFTs, continue albuterol 08/03/2022 obtain PFTs Contact dermatitis Ongoing since 2015 Depression with anxiety Has tried Zoloft, Effexor, developed sweating with both and was tapered off 07/08/2022 she continues to sweat without medication, refer to behavioral health 08/03/2022 she continues to struggle with her mental health, keep scheduled behavioral health appointment 08/10/2022 she had an appointment 2 days ago but could not go due to nausea, ondansetron given, stressed the importance of scheduling an appointment Hemochromatosis associated with mutation in HFE gene positive for one copy of H63D mutation in HFE gene. neg for c282Y hereditary hemochromatosis. Carrier per hematology patient should have yearly ferritin levels drawn and if elevated consult with hematology at that time 07/08/2022 check cbc and ferritin today 08/10/2022 has an appointment with hematology tomorrow, urged her to keep Hypertension Took medication in 201707/08/2022 new. Seen at [facility] ER in May and started on hydrochlorothiazide 12.5, blood pressure significantly elevated still, add losartan 50 mg for a week and then increase to 100, labs today, EKG shows normal sinus rhythm no ectopy or ST changes, obtain echo, stress test, follow-up a month 08/03/2022 blood pressure improved on losartan 50 and hydrochlorothiazide 25, obtain stress test, echo 08/10/2022 elevated on losartan 100 and hydrochlorothiazide 25, add di ltiazem, discussed use, rationale and side effects. Follow-up on the for wellness Muscle spasm (10/01/14) Took cyclobenzaprine for muscle spasms in 201507/08/2022 new. Trial of methocarbamol Neck pain Seen by Dr. Zuñiga in 201707/08/2022 new. Obtain x-ray, start physical therapy, refer to Ortho 08/03/2022 she has an appoint with Dr. Zuñiga in 6 weeks 08/10/2022 keep appointment with Yogesh Sweating abnormality 2018 due to the number of medications she is taking that can contribute to sweating we will taper off medication rather than a complete workup due to cost, as patient does not have insurance at this time. If sweating persists will proceed with TB test, echo, blood culture, HIV etc. in 2018 sweating was thought to be related to Zoloft or Effexor, she is no longer having this and continues to sweat Tension headache (10/01/14) Took amitriptyline in 201507/08/2022 continues to struggle, start physical therapy Thoracic spine pain (10/01/14) Ureteral calculus left 5 mm stone Surgical History No history of previous surgery Family History Unknown Hemochromatosis Grandmother Benign neoplasm of brain Maternal Malignant neoplasm of colon Maternal Diabetes mellitus Maternal Dementia Brother Diabetes mellitus Calculus of kidney High blood pressure Father Cardiac disease Grandfather Malignant neoplasm of prostate Paternal Mother Dementia Social History adopted: No caregiver/support person: No foster care: No household members: family housing: house lives independently: Yes marital status: single education level: college service: No snf: No 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 Living with mother MEDS/ALLERGIES Home Medications and Allergies Home Medications Medication Instructions Recorded Confirmed Type fexofenadine 180 mg tablet 180 mg PO QDAY 07/07/22 08/25/22 History (Kenia Allergy) fluticasone propionate 50 1 spray intranasal QDAY 07/07/22 08/25/22 History mcg/actuation nasal spray,suspension (Flonase Allergy Relief) losartan 50 mg tablet 100 mg PO QDAY 08/03/22 08/25/22 History omeprazole 40 mg capsule,delayed 40 mg PO QDAY 30 days #30 caps 08/03/22 08/25/22 Rx release potassium chloride 20 mEq 20 meq PO QDAY #7 tabs 08/05/22 08/25/22 Rx tablet,extended release diltiazem HCl 120 mg 120 mg PO QAM #30 caps 08/10/22 08/25/22 Rx capsule,extended release 24 hr hydrochlorothiazide 25 mg tablet 25 mg PO QAM #30 tabs 08/10/22 08/25/22 Rx ondansetron HCl 8 mg tablet 8 mg PO Q12H PRN nausea and 08/10/22 08/25/22 Rx vomiting #30 tabs methocarbamol 750 mg tablet 750 mg PO TID PRN muscle spasm #30 08/11/22 08/25/22 Rx tabs Allergies Allergy/AdvReac Type Severity Reaction Status Date / Time feathers Allergy Unknown Unknown Verified 08/25/22 16:38 mold Allergy Unknown Unknown Verified 08/25/22 16:38 Penicillins Allergy Unknown Unknown Verified 08/25/22 16:38 Dust mites Allergy Unknown Unknown Uncoded 08/25/22 09:04 Raw shellfish Allergy Unknown Unknown Uncoded 08/25/22 09:04 Physical Examination Vital Signs Vital signs: Temp Pulse Resp BP Pulse Ox O2 Del Method 98.2 F 59 L 17 158/99 99 08/25/22 16:34 08/26/22 16:35 08/26/22 16:35 08/26/22 16:02 08/26/22 16:35 08/26/22 05:42 General Appearance General appearance: well-developed, well-nourished and appears started age EENT EENT: mucous membranes moist Respiratory Respiratory: clear Cardiovascular Cardiology: no edema Gastrointestinal Gastrointestinal: no tenderness Integumentary Integumentary: no rash and warm and dry Neurologic Neurologic: no focal deficit and alert and oriented x3 Musculoskeletal Musculoskeletal: no deformities Psychiatric Psychiatric: mood/affect appropriate and cooperative Results Lab Results Result Diagrams: 08/25/22 18:56 08/26/22 11:15 Lab results: Most recent lab results Calcium 8.7 mg/dL (8.6-10.4) 08/26/22 11:15 Magnesium 2.8 mg/dL (1.6-2.5) H 08/25/22 21:21 A/P Assessment and plan (1) Acute renal failure: Assessment and plan: Cristina Ruby is a 41-year-old female with a history of hypertension, hemochromatosis, GERD, being admitted on 07/3022 for acute kidney injury. She was sent to ED for abnormal laboratory work-up by the patient's primary care provider. In ED, the patient was given IV fluids and followed for about 24 hours as there was no bed capacity in the hospital. Her renal function improved and she had good urine output. She has reported abdominal and back discomfort with constipation since May. CT abdomen and pelvis with contrast on 08/08/2022 showed mild thickened appearance of the colon involving the cecum, ascending and proximal transverse colon. Nephrology consultation was requested for acute kidney injury. Acute kidney injury, present on arrival. No history of nephrology evaluation in the past. She passed a kidney stone in the past. Family history of kidney disease: Her brother has anatomically abnormal kidneys. IV contrast administration with CT on 08/08/22. History of NSAID use: Frequently in until May 2022, none since then. Acute glomerulonephritis, acute interstitial nephritis or acute toxic nephropathy due to medications are considered but unlikely with her urine findings. No obvious etiology identified. Work up: Urinalysis on 08/26/33: Yellow, Clear, pH 5.0, SG 1.006, protein negative, blood negative, leukocyte esterase negative, urine culture mixed jyoti. Renal US on 08/25/22: Anatomically normal kidneys. CT Abdomen and Pelvis with contrast on 08/08/22: Kidneys normal. Progress: Serum creatinine decreased from 4.6 to 3.7 in the past 24 hours. Baseline serum creatinine: 1.0 on 08/10/22. Urine output: 2450 ml reported in the past 24 hours. Hypokalemia, being replaced. No uremic symptoms. Recommendations/Plan: No acute hemodialysis need. Work up with free kappa/lambda light chain ratio, C3, C4, ANCA screen, anti-GBM Ab, anti-dsDNA Ab ordered. Risks and benefits of a kidney biopsy was discussed and will be considered based on the progress. Avoid NSAIDs, nephrotoxic medications and IV contrast. Hold CHRISTIANO, diuretics. Monitor BMP and urine output. Status: Acute Qualifiers: Acute renal failure type: unspecified Qualified Code(s): N17.9 - Acute kidney failure, unspecified Time Spent With Patient Time: Total time spent is greater than 50% in coordination of care (as documented) at patient's floor/unit and/or counseling patient:
[2022-08-26] MEDS ORDERED: POLYETHYLENE GLYCOL 3350 17 GM PACKET PO PRN (17:24)
[2022-08-26] MEDS ORDERED: ACETAMINOPHEN 325 MG TABLET PO PRN (17:24)
[2022-08-26] MEDS ORDERED: ONDANSETRON 4 MG/2 ML VIAL IV PRN (17:24)
[2022-08-26] MEDS ORDERED: ONDANSETRON 4 MG/2 ML VIAL ONE (18:08)
[2022-08-26] MEDS: DOCUSATE SODIUM 100 MG CAPSULE PO SCH (20:46)
[2022-08-26] MEDS: SENNOSIDES 1 TABLET PO SCH (20:46)
[2022-08-26] MEDS: HEPARIN 5,000 UNIT/ML VIAL SQ SCH (20:46)
[2022-08-26] MEDS: METHOCARBAMOL 750 MG TABLET PO PRN (20:47)
[2022-08-26] MEDS: 0.9 % SODIUM CHLORIDE 10 ML SYRINGE IV SCH (20:47)
[2022-08-27] MEDS: 0.9 % SODIUM CHLORIDE 1,000 ML IV SCH ×7 (00:03→23:32)
[2022-08-27] MEDS: 0.9 % SODIUM CHLORIDE 10 ML SYRINGE IV SCH ×3 (06:42→20:41)
[2022-08-27] MEDS ORDERED: OMEPRAZOLE 20 MG CAPSULE PO SCH (07:30)
[2022-08-27] MEDS: ONDANSETRON 4 MG/2 ML VIAL IV PRN ×3 (07:37→22:26)
[2022-08-27] MEDS: HEPARIN 5,000 UNIT/ML VIAL SQ SCH ×2 (08:39→20:40)
[2022-08-27] MEDS: METHOCARBAMOL 750 MG TABLET PO PRN ×3 (08:39→23:32)
[2022-08-27] MEDS: DOCUSATE SODIUM 100 MG CAPSULE PO SCH ×2 (08:40→19:19)
[2022-08-27] MEDS ORDERED: HYDROCHLOROTHIAZIDE 25 MG TABLET PO SCH (09:00)
[2022-08-27] MEDS ORDERED: DILTIAZEM 120 MG CAP.XL.24H PO SCH (09:00)
[2022-08-27] MEDS ORDERED: LOSARTAN 50 MG TABLET PO SCH (09:00)
[2022-08-27] MEDS ORDERED: amLODIPine 5 MG TABLET PO SCH (09:00)
[2022-08-27] MEDS ORDERED: FLUTICASONE PROPIONATE SPRAY.NAS NS SCH ×2 (09:00→21:00)
[2022-08-27 10:46] LABS: Albumin 3.6 gm/dL (3.2-5.2); Blood Urea Nitrogen 19 mg/dL (6-20); Calcium 8.4 mg/dL (8.6-10.4); Carbon Dioxide 24 mmol/L (22-30); Chloride 105 mmol/L (96-108); Glomerular Filtration Rate 27; Glucose 138 mg/dL (70-105); Phosphorous 3.8 mg/dL (2.5-4.5)
[2022-08-27] MEDS ORDERED: POTASSIUM CHLORIDE 20 MEQ TABLET PO ONE (10:50)
--- NOTE | 2022-08-27 10:53 | Nephrology Progress Note ---
SUBJECTIVE Subjective Patient information: Note initiated : 08/27/22 at 10:53 am Patient: Cristina Ruby 41 y/o F admitted on 08/26/[address] liriano fluids low electrolytes. Chief Complaint: Abnormal labs Pertinent ROS: Feels better No uremic symptoms No urination symptoms Constitutional Vitals: Vital Signs Temp Pulse Resp BP Pulse Ox O2 Del Method 99 F 58 L 16 143/85 98 08/27/22 07:28 08/27/22 07:28 08/27/22 07:28 08/27/22 07:28 08/27/22 07:28 08/27/22 07:28 Period Temp Pulse Resp BP Sys/Pyle Pulse Ox O2 Del Method O2 Flow Rate Last 24 Hr 97.7 F-99 F 48-66 12- 134-167/69-137 95-100 Room Air-Room Air Intake and Output 08/26/22 08/27/22 08/27/22 19:59 03:59 11:59 Intake Total 2118 1480 1500 Output Total 1050 501 Balance 2118 430 999 Weight 233 lb 237 lb 5 oz Intake & Output: Intake & Output 08/26/22 08/27/22 08/27/22 19:59 03:59 11:59 Intake Total 2118 1480 1500 Output Total 1050 501 Balance 2118 430 999 Weight 233 lb 237 lb 5 oz Intake: IV 2000 1000 1000 Sodium Chloride 0.9% 1,000 ml @ 2000 1000 1000 150 mls/hr IV .[id number] [facility] Rx#: [id number] Oral 118 480 500 Output: Void Amount 1050 500 Urine/Stool Mix 1 Other: Urine Appearance Clear Urine Color Yellow Urine Odor Normal Stool Size Small Moderate Stool Color Brown Brown Stool Consistency Loose Watery # Voids 1 # Bowel Movements 1 General appearance: cooperative and no acute distress Head Head exam: Present normal inspection Eye Eye exam: Present normal appearance ENT ENT exam: Present mucous membranes moist Respiratory Respiratory exam: Absent respiratory distress Cardiovascular Cardiovascular exam: Present normal rate and rhythm GI/Abdominal GI/Abdominal exam: Present soft; Absent tenderness Extremities Exam Extremities exam: Absent joint swelling or pedal edema Neurological Exam Neurological exam: Present alert and oriented X3 Psychiatric Psychiatric exam: Present normal affect and normal mood Skin Skin exam: Present warm; Absent rash A/P Assessment and plan (1) Acute renal failure: Assessment and plan: Cristina Ruby is a 41-year-old female with a history of hypertension, hemochromatosis, GERD, being admitted on 07/3022 for acute kidney injury. She was sent to ED for abnormal laboratory work-up by the patient's primary care provider. In ED, the patient was given IV fluids and followed for about 24 hours as there was no bed capacity in the hospital. Her renal function improved and she had good urine output. She has reported abdominal and back discomfort with constipation since May. CT abdomen and pelvis with contrast on 08/08/2022 showed mild thickened appearance of the colon involving the cecum, ascending and proximal transverse colon. Nephrology consultation was requested for acute kidney injury. Acute kidney injury, present on arrival, resolving. No history of nephrology evaluation in the past. She passed a kidney stone in the past. Family history of kidney disease: Her brother has anatomically abnormal kidneys. IV contrast administration with CT on 08/08/22. History of NSAID use: Frequently in until May 2022, none since then. Acute glomerulonephritis, acute interstitial nephritis or acute toxic nephropathy due to medications are considered but unlikely with her urine findings. No obvious etiology identified. Work up: Urinalysis on 08/26/33: Yellow, Clear, pH 5.0, SG 1.006, protein negative, blood negative, leukocyte esterase negative, urine culture mixed jyoti. Renal US on 08/25/22: Anatomically normal kidneys. CT Abdomen and Pelvis with contrast on 08/08/22: Kidneys normal. Progress: Serum creatinine decreased from 3.7 to 2.2 in the past 24 hours. Baseline serum creatinine: 1.0 on 08/10/22. Urine output: 1950 ml reported in the past 24 hours. Hypokalemia, being replaced. No uremic symptoms. Recommendations/Plan: Work up with free kappa/lambda light chain ratio, C3, C4, ANCA screen, anti-GBM Ab, anti-dsDNA Ab ordered on 08/26/22, will be followed as outpatient. No need kidney biopsy or dialysis. Outpatient nephrology follow up with a BMP next week after discharge. Dr. Maharaj will take over nephrology call tomorrow. Status: Acute Qualifiers: Acute renal failure type: unspecified Qualified Code(s): N17.9 - Acute kidney failure, unspecified Time Spent With Patient Time: Total time spent is greater than 50% in coordination of care (as documented) at patient's floor/unit and/or counseling patient:
[2022-08-27] MEDS: DILTIAZEM 120 MG CAP.XL.24H PO SCH (10:54)
--- NOTE | 2022-08-27 16:02 | Internal Med Progress Note ---
SUBJECTIVE Subjective Patient information: Note initiated : 08/27/22 at 3:59 pm Service Date, if different from initiated Date: [] Patient: Cristina Ruby 41 y/o F admitted on 08/26/[address] heri denney. Chief Complaint: [] Interval history: Ms. Ruby is a 41 year old Female with a history of hypertension, hemochromatosis, GERD who was asked to go to the emergency department for acute kidney injury found on laboratory work-up by the patient's primary care provider. In the ED, the patient had a urinalysis which was bland and a bilateral renal ultrasound which did not showed any evidence of hydronephrosis and anatomically normal kidneys. She was given IV fluids and followed for about 24 hours as there was no bed capacity in the hospital when she presented to the ED. Her renal function did improve significantly with IV fluid and the patient has been making urine. In the ED, the patient's blood pressure has been el evated. The patient's CBC with differential was normal. The patient presented with hypokalemia which was corrected in the ED. The patient says that in May she had a illness which primarily manifested as abdominal discomfort and also back discomfort. She says that she had been severely constipated but that resolved. The patient did have a CT abdomen and pelvis with contrast on 08/08/2022 which showed mild thickened appearance of the colon involving the cecum, ascending and proximal transverse colon. The patient says she does have a family history of kidney disease in her brother who has anatomically abnormal kidneys. She says she has a first-degree relative who has leukemia. The p atient denies recent high-dose NSAID use. 08/27 Hypertensive overnight, heart rate in the upper 50s. Discontinued diltiazem and started Norvasc. Continue holding losartan and spironolactone due to acute kidney injury which is improving. Comprehensive acute kidney injury work-up ordered by nephrology still pending. Creatinine kinase level was normal. Reduced normal saline IV fluid rate. Started Pepcid for GERD, holding omeprazole given acute kidney injury. Physical exam Head: Atraumatic, normal inspection. Eyes: normal appearance, no scleral icterus. Neck: full ROM Respiratory: no respiratory distress. Cardiovascular: normal rate and rhythm, S1, S2. GI/Abdominal: Obesely distended, soft, nontender, no guarding. Extremities: full range of motion, mild tenderness over mid back muscles on both sides of thoracic spine Neurological: CN II-XII intact, intact motor, intact sensation. Psychiatric: normal mood. Skin: warm, normal color Constitutional Vitals: Vital Signs Temp Pulse Resp BP Pulse Ox O2 Del Method 99 F 60 16 158/80 100 08/27/22 15:53 08/27/22 15:53 08/27/22 15:53 08/27/22 15:53 08/27/22 15:53 08/27/22 15:53 Period Temp Pulse Resp BP Sys/Pyle Pulse Ox O2 Del Method O2 Flow Rate Last 24 Hr 97.7 F-99 F 58-76 13-18 134-183/69-137 95-100 Room Air-Room Air Intake and Output 08/27/22 08/27/22 08/27/22 03:59 11:59 19:59 Intake Total 1480 1980 1480 Output Total 1050 801 900 Balance 430 1179 580 Weight 107.643 kg 107.643 kg Patient Weight 08/28/22 03:59 Weight 107.643 kg Intake & Output: Intake & Output 08/27/22 08/27/22 08/27/22 03:59 11:59 19:59 Intake Total 1480 1980 1480 Output Total 1050 801 900 Balance 430 1179 580 Weight 107.643 kg 107.643 kg Intake: IV 1000 1000 1000 Sodium Chloride 0.9% 1,000 ml @ 1000 1000 1000 150 mls/hr IV .Q6H40M [facility] Rx#: [id number] Oral 480 980 480 Output: Void Amount 1050 800 900 Urine/Stool Mix 1 Other: Meal Breakfast Lunch Percent of Meal Consumed 10% 25% Feeding Ability Independent Independent Urine Appearance Clear Clear Urine Color Yellow Yellow Urine Odor Normal Normal Stool Size Small Small Stool Color Brown Brown Stool Consistency Loose Soft # Voids 1 # Bowel Movements 1 OBJ DATA Labs CBC & Chem 7: 08/25/22 18:56 08/27/22 09:44 Labs: Abnormal Lab Results 08/27/22 08/26/22 08/26/22 09:44 11:15 04:24 POC Potassium Potassium 2.8 L* POC BUN BUN 25 H 28 H Creatinine 2.2 H 3.7 H 4.1 H POC Creatinine Glucose 138 H 123 H 125 H POC Glucose Calcium 8.4 L 8.5 L POC WB Ioniz Calcium Magnesium 08/25/22 08/25/22 08/25/22 21:24 21:21 19:32 POC Potassium 3.2 L 2.9 L* Potassium POC BUN 35 H 38 H BUN Creatinine POC Creatinine 5.2 H* 5.4 H* Glucose POC Glucose 119 H Calcium POC WB Ioniz Calcium 1.03 L 1.13 L Magnesium 2.8 H 08/25/22 19:00 POC Potassium 3.0 L Potassium POC BUN 37 H BUN Creatinine POC Creatinine 5.4 H* Glucose POC Glucose Calcium POC WB Ioniz Calcium 1.10 L Magnesium Meds: Medications Acetaminophen (Acetaminophen 325 Mg Tablet) 650 mg PO Q6HP PRN; Protocol PRN Reason: Per Pain Protocol/Fever > 101 Amlodipine Besylate (Amlodipine 5 Mg Tablet) 5 mg PO DAILY [facility] Last Admin: 08/27/22 12:16 Dose: 5 mg Docusate Sodium (Docusate Sodium 100 Mg Capsule) 100 mg PO BID [facility] Last Admin: 08/27/22 08:40 Dose: Not Given Famotidine (Famotidine 20 Mg Tablet) 20 mg PO HS [facility] Fluticasone Propionate (Fluticasone Propionate [place].Agustin) 1 spray NS HS [facility] Heparin Sodium (Porcine) (Heparin 5,000 Unit/Ml Vial) 5,000 unit SQ Q12 [facility] Last Admin: 08/27/22 08:39 Dose: 5,000 unit Sodium Chloride (Sodium Chloride 0.9%) 1,000 mls @ 100 mls/hr IV .Q10H [facility] Last Admin: 08/27/22 13:59 Dose: 100 mls/hr Methocarbamol (Methocarbamol 750 Mg Tablet) 750 mg PO TID PRN PRN Reason: muscle spasm Last Admin: 08/27/22 08:39 Dose: 750 mg Ondansetron HCl (Ondansetron 4 Mg/2 Ml Vial) 4 mg IV Q4HP PRN PRN Reason: Nausea And Vomiting Last Admin: 08/27/22 07:37 Dose: 4 mg Polyethylene Glycol (Polyethylene Glycol 3350 17 Gm Packet) 17 gm PO DAILYP PRN PRN Reason: Constipation Senna (Sennosides 1 Tablet) 2 tab PO [facility] Last Admin: 08/26/22 20:46 Dose: Not Given Sodium Chloride (0.9 % Sodium Chloride 10 Ml Syringe) 10 ml IV Q8 [facility] Last Admin: 08/27/22 13:59 Dose: Not Given A/P Narrative A/P Narrative: Assessment: 41-year-old female with a history of hypertension, hemochromatosis, GERD admitted for acute kidney injury of uncertain etiology however likely an intrinsic form of RADHA. Unlikely to be prerenal RADHA and no evidence of obstructive nephropathy. Nephrology following. #Acute kidney injury of uncertain etiology #Essential hypertension #GERD #Obesity BMI 42 Plan -IV fluid, monitor renal function and urine output. -Monitor volume status. -Start Pepcid for GERD, holding PPI due to recent RADHA. -Holding home HCTZ and losartan for now. -Holding diltiazem due to bradycardia. -Start Norvasc 5 mg daily, titrate as needed for BP. -Nephrology following. -Regular diet. -DVT prophylaxis: Heparin SQ -CODE STATUS: Full -Disposition: Home when stable. Follow-up with nephrology in clinic. Time Spent With Patient Time: Total time spent is greater than 50% in coordination of care (as documented) at patient's floor/unit and/or counseling patient: QUALITY VTE Deep Vein Thrombosis/Pulmonary Embolism Present on Admission: No
[2022-08-27] MEDS: SENNOSIDES 1 TABLET PO SCH (19:19)
[2022-08-27] MEDS ORDERED: FAMOTIDINE 20 MG TABLET PO SCH (21:00)
[2022-08-28] MEDS: 0.9 % SODIUM CHLORIDE 10 ML SYRINGE IV SCH (05:09)
[2022-08-28 07:26] LABS: ALT/SGPT 36 U/L (<40); AST/SGOT 21 U/L (<32); Albumin 3.5 gm/dL (3.2-5.2); Albumin/Globulin Ratio 1.1 (1.0-2.3); Alkaline Phosphatase 74 U/L (39-117); Bilirubin,Direct < 0.2 mg/dL (0-0.3); Bilirubin,Total 0.3 mg/dL (0.1-1.0); Blood Urea Nitrogen 11 mg/dL (6-20); Calcium 8.6 mg/dL (8.6-10.4); Carbon Dioxide 26 mmol/L (22-30); Chloride 107 mmol/L (96-108); Globulin 3.2 gm/dL (2.2-3.7); Glomerular Filtration Rate 42; Glucose 90 mg/dL (70-105); Lactate Dehydrogenase 196 U/L (135-225); Phosphorous 4.3 mg/dL (2.5-4.5); Triglycerides 173 mg/dL (<150); Uric Acid 9.3 mg/dL (2.5-8.0)
[2022-08-28] MEDS: HEPARIN 5,000 UNIT/ML VIAL SQ SCH (08:21)
[2022-08-28] MEDS: DOCUSATE SODIUM 100 MG CAPSULE PO SCH (08:22)
[2022-08-28] MEDS ORDERED: POTASSIUM CHLORIDE 20 MEQ TABLET PO ONE (08:36)
[2022-08-28] MEDS ORDERED: amLODIPine 5 MG TABLET PO SCH (09:00)
[2022-08-28] MEDS: 0.9 % SODIUM CHLORIDE 1,000 ML IV SCH (10:30)
--- NOTE | 2022-08-28 11:33 | Discharge Summary ---
Discharge Provider Provider IMPORTANT FOLLOW-UP INFORMATION FOR PCP: Patient information: Note initiated : 08/28/22 at 11:30 am Service Date, if different from initiated Date: [] Patient: Cristina Ruby 41 y/o F admitted on 08/26/[address] liriano fluids low electrolites. Chief Complaint: [] Date of admission: 08/26/22 16:57 Discharge date: 08/28/22 Primary care physician: RUDOLPH Andrea Consults: 08/26/22 Consult to Physician [CONS] Stat Comment: Consulting Provider: Michael Leyva Reason For Exam: Physician to Consult 08/26/22 17:24 Consult to Physician [CONS] Urgent Comment: Consulting Provider: Clive Palacios Reason For Exam: Physician to Consult COURSE Hospital Course Hospital course: Ms. Rbuy is a 41 year old Female with a history of hypertension, he mochromatosis, GERD who was asked to go to the emergency department for acute kidney injury found on laboratory work-up by the patient's primary care provider. In the ED, the patient had a urinalysis which was bland and a bilateral renal ultrasound which did not showed any evidence of hydronephrosis and anatomically normal kidneys. She was given IV fluids and followed for about 24 hours as there was no bed capacity in the hospital when she presented to the ED. Her renal function did improve significantly with IV fluid and the patient has been making urine. In the ED, the patient's blood pressure has been elevated. The patient's CBC with differential was normal. The patient presented with hypokalemia which was corrected in the ED. The patient says that in May she had a illness which primarily manifested as abdominal discomfort and also back discomfort. She says that she had been severely constipated but that resolved. The patient did have a CT abdomen and pelvis with contrast on 08/08/2022 which showed mild thickened appearance of the colon involving the cecum, ascending and proximal transverse colon. The patient says she does have a family history of kidney disease in her brother who has anatomically abnormal kidneys. She says she has a first-degree relative who has leukemia. The patient denies recent high-dose NSAID use. 08/27 Hypertensive overnight, heart rate in the upper 50s. Discontinued diltiazem and started Norvasc. Continue holding losartan and spironolactone due to acute kidney injury which is improving. Comprehensive acute kidney injury work-up ordered by nephrology still pending. Creatinine kinase level was normal. Reduced normal saline IV fluid rate. Started Pepcid for GERD, holding omeprazole given acute kidney injury. 08/28 No significant events overnight, blood pressure still moderately elevated with amlodipine 10 mg daily. Renal function significantly improved, creatinine down to 1.5. The patient is making urine. Discussed the patient with nephrology, Dr. Maharaj. He is okay with discharge today with follow-up in nephrology clinic. Dr. Maharaj recommended holding hydrochlorothiazide and losartan at discharge, okay to continue amlodipine. Also held the patient's PPI due to the uncertain nature of the patient's acute kidney injury. PPIs have been associated with CKD. Discharged on Pepcid instead of PPI. Ordered repeat renal function panel several days after discharge and prior to nephrology follow-up. Multiple pending acute kidney injury labs at discharge, also pending aldosterone and renin activity labs. Physical exam Head: Atraumatic, normal inspection. Eyes: normal appearance, no scleral icterus. Neck: full ROM Respiratory: no respiratory distress. Cardiovascular: normal rate and rhythm, S1, S2. GI/Abdominal: Obesely distended, soft, nontender, no guarding. Extremities: full range of motion, mild tenderness over mid back muscles on both sides of thoracic spine Neurological: CN II-XII intact, intact motor, intact sensation. Psychiatric: normal mood. Skin: warm, normal color Discharge diagnosis: Acute kidney injury Secondary discharge diagnosis: Hypertension Time Spent with Patient Time attestation: Total time spent providing and/or coordinating discharge services: Time spent: Less than 30 minutes EXAM Constitutional Vitals: Temp Pulse Resp BP Pulse Ox O2 Del Method 98.2 F 50 L 16 164/88 99 08/28/22 07:30 08/28/22 07:30 08/28/22 07:30 08/28/22 07:30 08/28/22 07:30 08/28/22 07:30 Discharge Data Data Completed and Pending Labs on day of discharge: Labs from last 24 hours 08/28/22 08/28/22 05:42 05:00 Sodium 142 Potassium 3.0 L Chloride 107 Carbon Dioxide 26 Anion Gap 9.0 BUN 11 Creatinine 1.5 H GFR Calculation 42 Glucose 90 Uric Acid 9.3 H Calcium 8.6 Phosphorus 4.3 Magnesium 1.6 Total Bilirubin 0.3 Direct Bilirubin < 0.2 GGT 49 H AST 21 ALT 36 Alkaline Phosphatase 74 Lactate Dehydrogenase 196 Total Protein 6.7 Albumin 3.5 Globulin 3.2 Albumin/Globulin Ratio 1.1 Triglycerides 173 H Renin Activity Pending Aldosterone Pending Aldosterone/Renin Ratio Pending Discharge Plan Patient/Caregiver Discharge Instructions Activity: increase activity as tolerated Diet: Low Sodium (2gm) Prescriptions: New famotidine 20 mg tablet 20 mg PO HS Qty: 30 3RF amlodipine 10 mg tablet 10 mg PO QDAY Qty: 60 5RF Continued fluticasone propionate [Flonase Allergy Relief] 50 mcg/actuation spray,suspension 1 spray intranasal QHS Rx Instructions: administer into each nostril fexofenadine [Kenia Allergy] 180 mg tablet 180 mg PO QDAY ondansetron HCl 8 mg tablet 8 mg PO Q12H PRN (Reason: nausea and vomiting) Qty: 30 1RF Digestive Advantage Prob Gummy 1 gummy PO DAILY Discontinued methocarbamol 750 mg tablet 750 mg PO TID PRN (Reason: muscle spasm) Qty: 30 1RF losartan 50 mg tablet 100 mg PO QDAY omeprazole 40 mg capsule,delayed release(DR/EC) 40 mg PO QDAY 30 Days Qty: 30 2RF hydrochlorothiazide 25 mg tablet 25 mg PO QAM Qty: 30 3RF diltiazem HCl 120 mg capsule,extended release 24hr 120 mg PO QAM Qty: 30 1RF Other Ambulatory Orders: Renal Function Panel (Routine) Timeframe: 3 Days Facility: [facility] - Location: Laboratory Ordered By: Michael Leyva Follow Up Plan Follow up with: Yamileth Tavares ARNP [Primary Care Provider] - Oumar Maharaj MD [Physician] - 09/01/22 (Posthospitalization follow-up for acute kidney injury. Held hydrochlorothiazide and losartan as well as PPI at discharged. Will probably need antihypertensive management changes. Follow-up pending RADHA laboratory results and pending aldosterone to renin activity ratio.) Patient Disposition: Home, Self-Care Prognosis: Fair Overall status at discharge: patient is progressing back to baseline Discharge Orders: Discharge Order (Routine); Ordered 08/28/22 Ordered By: Michael Leyva QUALITY VTE Deep Vein Thrombosis/Pulmonary Embolism Present on Admission: No
--- NOTE | 2022-08-30 20:58 | EKG ---
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
[2022-09-03 15:21] LABS: Aldosterone Serum < 1 ng/dL; Renin Activity, Plasma 0.51 ng/mL/h (0.25-5.82)
== END 2022-08-28 13:45 | disposition home or self-care (01) | DRG 683 ==
LOC: ED 16:31 → MEDSUR 08-26 16:57
PROVIDERS: ADMIT Internal Medicine; ATTEND Internal Medicine